=== PATIENT | male | born 1965 | race Caucasian/White ===

== ENCOUNTER 2023-11-07 07:40 | Outpatient (REF) | payer OTHER, SELFPAY ==
--- NOTE | ~2023-11-07 | CT_ITS ---
EXAMINATION: CT ABDOMEN AND PELVIS WITHOUT AND WITH CONTRAST/CT UROGRAM CLINICAL INFORMATION: Gross hematuria. COMPARISON: None available. TECHNIQUE: Noncontrast CT of the abdomen and pelvis is performed followed by split bolus contrast-enhanced images using 85 mL Omnipaque 350 contrast.? Postcontrast imaging is performed during the combined nephrogram and excretion phase. Sagittal and coronal reformatted images were obtained on the technologist's workstation for both the precontrast and postcontrast phases. This CT examination was performed using dose optimization techniques as appropriate, variously including the following: *Automated exposure control *Adjustment of mA and/or kV according to patient size (this includes techniques or standardized protocols for targeted exams where dose is matched to indication/reason for exam; i.e. extremities or head) *Use of iterative reconstruction technique DLP: 805 mGy-cm FINDINGS: LUNG BASES: The visualized lung bases are unremarkable. LIVER, GALLBLADDER, AND BILIARY TREE: The liver is normal in size, shape, and attenuation. There is a 3 mm tiny water density cyst in the right lobe of the liver (9:118). No worrisome solid focal hepatic lesion or biliary ductal dilatation is present. The gallbladder is unremarkable with no evidence of radiopaque gallstones, gallbladder wall thickening, or obvious pericholecystic inflammatory changes. PANCREAS: Unremarkable. SPLEEN: Unremarkable. ADRENAL GLANDS: Unremarkable. KIDNEYS AND URETERS: The kidneys are normal in size, shape, and attenuation. The left kidney measures 11.1 cm in length and right kidney measures 11.2 cm in length. There is a right mid renal Bosniak class I 1.9 cm cyst along with some smaller lateral cysts which needs no additional imaging or followup. At the upper pole of the left kidney, there is a hypoattenuating mass seen measuring 1.4 cm which measures 42 Hounsfield units on noncontrast imaging and 39 Hounsfield units after the administration of contrast. There is cortical thinning seen above this. No hydronephrosis, hydroureter, or calculi seen. The pelvicalyceal systems appear unremarkable without evidence of filling defects or mucosal abnormality. No perinephric stranding. Both ureters appear normal. BLADDER: The bladder is not optimally assessed on this exam. On noncontrast imaging, there is a suggestion of asymmetric wall thickening at the bladder base on the left. Given the history of gross hematuria, cystoscopy is recommended for further evaluation. GASTROINTESTINAL TRACT: The small and large bowel are unremarkable. The appendix is unremarkable. ABDOMINAL WALL: No significant hernia is appreciated. LYMPH NODES: Normal. VASCULAR: Calcific atherosclerotic changes are present in the aorta and biliary vessels. There is no evidence of an abdominal aortic aneurysm. PELVIC VISCERA: Prostate appears mildly enlarged. OSSEUS STRUCTURES: Unremarkable. CT/CT urogram IMPRESSION: 1. A definite cause for the patient's gross hematuria except for asymmetric wall thickening at the bladder base on the left. Given the history of gross hematuria, cystoscopy is recommended for further evaluation. 2. There is a 1.4 cm hypoattenuating mass at the upper pole of the left kidney which measures 42 Hounsfield units on noncontrast imaging and 39 Hounsfield units after the administration of contrast. This is probably a complex cyst as there is no enhancement. There is some associated renal cortical scarring at this level. 3. Other incidental findings as described above.
[2023-11-07] MEDS: iohexoL 350 MG/ML 100 ML INFUS..BTL IV (08:29)
[2023-11-08 07:12] LABS: Creatinine POC 0.5 mg/dL (0.5-1.4); GFR POC > 60
== END 2023-11-07 07:41 | disposition home or self-care (01) ==
LOC: HO.CT 07:40
PROVIDERS: PCP Nurse Practitioner Primary Care; Visit Provider Physician Assistant Surgical
DX: R31.0 Gross hematuria (principal)
CPT/HCPCS: 74178; 82565; Q9967